=== PATIENT | male | born 1965 | race Caucasian/White ===

== ENCOUNTER 2018-03-19 10:30 | Inpatient (IN) | payer SELFPAY ==
[2018-03-19 10:43] VITALS: BMI 26.3
--- NOTE | 2018-03-19 11:43 | HP ---
CIWA Score - CIWA Score Nausea/Vomitin Muscle Tremors: 3 Anxiety: 3 Agitation: 3 Paroxysmal Sweats: 1-Minimal Palms Moist Orientation: 0-Oriented Tacttile Disturbances: 1-Very Mild Itch/Numbness Auditory Disturbances: 1-Very Mild Visual Disturbances: 1-Very Mild Sensitivity Headache: 2-Mild CIWA-Ar Total Score: 18 Admission ROS BHS - HPI Chief Complaint: i need help to stop drinking alcohol Allergies/Adverse Reactions: Allergies Allergy/AdvReac Type Severity Reaction Status Date / Time No Known Allergies Allergy Verified 03/19/18 11:30 History of Present Illness: this 53 years old male with alcohol dependence,seeking detox Exam Limitations: No Limitations - Ebola screening Have you traveled outside of the country in the last 21 days: No Have you had contact with anyone from an Ebola affected area: No Have you been sick,other than usual withdrawal symptoms: No Do you have a fever: No - Review of Systems Constitutional: Loss of Appetite, Malaise, Night Sweats, Changes in sleep, Weakness EENT: reports: Nose Congestion Respiratory: reports: No Symptoms reported Cardiac: reports: Palpitations GI: reports: Diarrhea, Nausea, Abdominal cramping : reports: No Symptoms Reported Musculoskeletal: reports: Back Pain, Muscle Pain Integumentary: reports: Dryness Neuro: reports: Headache, Tremors Endocrine: reports: No Symptoms Reported Hematology: reports: No Symptoms Reported Psychiatric: reports: No Sypmtoms Reported Patient History - Patient Medical History Hx Anemia: No Hx Asthma: No Hx Chronic Obstructive Pulmonary Disease (COPD): No Hx Cancer: No Hx Cardiac Disorders: No Hx Congestive Heart Failure: No Hx Hypertension: Yes (on med) Hx Hypercholesterolemia: No Hx Pacemaker: No HX Cerebrovascular Accident: No Hx Seizures: No Hx Dementia: No Hx Diabetes: No Hx Gastrointestinal Disorders: No Hx Liver Disease: No Hx Genitourinary Disorders: No Hx Sexually Transmitted Disorders: No Hx Renal Disease (ESRD): No Hx Thyroid Disease: No Hx Human Immunodeficiency Virus (HIV): No (last 03/13) Hx Hepatitis C: No Hx Depression: No Hx Suicide Attempt: No Hx Bipolar Disorder: No Hx Schizophrenia: No Other Medical History: no suicidal,n homicidal - Patient Surgical History Past Surgical History: No - PPD History Previous Implant?: Yes Documented Results: Negative w/o proof Implanted On Prior [facility] Admission?: No PPD to be Administered?: Yes - Smoking Cessation Smoking history: Never smoked - Substance & Tx. History Hx Alcohol Use: Yes Hx Substance Use: No Substance Use Type: Alcohol Hx Substance Use Treatment: No - Substances Abused Alcohol-vodka Route: Oral Frequency: Daily Amount used: 6 pts. Age of first use: 30 Date of Last Use: 03/18/18 Family Disease History - Family Disease History Family History: Denies Admission Physical Exam [facility] - Vital Signs Vital Signs: Vital Signs - 24 hr 03/19/18 10:41 Temperature 98.2 F Pulse Rate 102 H Respiratory 18 Rate Blood Pressure 158/106 - Physical General Appearance: Yes: Moderate Distress, Tremorous, Irritable, Sweating, Anxious HEENTM: Yes: Normal ENT Inspection, BRANDY, Pharynx Normal Respiratory: Yes: Lungs Clear, Normal Breath Sounds, No Respiratory Distress Neck: Yes: Within Normal Limits, Supple, Trachea in good position Breast: Yes: Within Normal Limits Cardiology: Yes: Tachycardia Abdominal: Yes: Within Normal Limits, Normal Bowel Sounds, Flat, Soft Genitourinary: Yes: Within Normal Limits Back: Yes: Muscle Spasm Musculoskeletal: Yes: Back pain, Muscle Pain Extremities: Yes: Normal Capillary Refill, Tremors Neurological: Yes: veneer drier II-XII NML intact, Fully Oriented, Alert, Motor Strength 5/5 Integumentary: Yes: Dry Lymphatic: Yes: Within Normal Limits - Diagnostic (1) Alcohol dependence with uncomplicated withdrawal Current Visit: Yes Status: Acute (2) Essential hypertension Current Visit: Yes Status: Acute Cleared for Admission [facility] - Detox or Rehab [facility] Level of Care: Medically Managed Detox Regimen/Protocol: Librium [facility] Breath Alcohol Content Breath Alcohol Content: 0 Urine Drug Screen - Results Drug Screen Negative: Yes
[2018-03-19] MEDS ORDERED: MAG HYDROX/AL HYDROX/SIMETH 30 ML UNIT-DOSE CUP PO PRN (11:50)
[2018-03-19] MEDS ORDERED: MAGNESIUM CITRATE 300 ML BOTTLE PO PRN (11:50)
[2018-03-19] MEDS ORDERED: guaiFENesin/D-METHORPHAN HB 10 ML UNIT-DOSE CUPS PO PRN (11:50)
[2018-03-19] MEDS ORDERED: MENTHOL/PHENOL 1 EACH UD MM PRN (11:50)
[2018-03-19] MEDS ORDERED: ACETAMINOPHEN 325 MG TABLET (FP) PO PRN (11:50)
[2018-03-19] MEDS ORDERED: LOPERAMIDE HCL 2 MG CAPSULE PO PRN (11:50)
[2018-03-19] MEDS ORDERED: chlordiazePOXIDE HCL 25 MG CAPSULE PO PRN (11:50)
[2018-03-19] MEDS ORDERED: P-EPHED 60MG/TRIPROLIDI 2.5MG TABLET PO PRN (11:50)
[2018-03-19] MEDS ORDERED: hydrOXYzine PAMOATE 50 MG CAPSULE (FP) PO PRN (11:50)
[2018-03-19] MEDS ORDERED: MAGNESIUM HYDROX 2400MG/30ML ORAL SUSPENSION 30 ML CUP PO PRN (11:50)
[2018-03-19] MEDS ORDERED: IBUPROFEN 400 MG TABLET (FP) PO PRN (11:50)
[2018-03-19] MEDS: chlordiazePOXIDE HCL 25 MG CAPSULE PO SCH ×2 (17:54→22:36)
[2018-03-19 18:04] LABS: URINE APPEARANCE CLEAR; URINE BILIRUBIN NEGATIVE (<2.0 mg/dL); URINE COLOR LTYELLOW; URINE GLUCOSE (UA) NEGATIVE (NEGATIVE); URINE KETONE NEGATIVE (NEGATIVE); URINE LEUK ESTERASE NEGATIVE (NEGATIVE); URINE NITRITE NEGATIVE (NEGATIVE); URINE PROTEIN NEGATIVE (NEGATIVE); URINE UROBILINOGEN NEGATIVE mg/dL (0.2-1.0)
--- NOTE | 2018-03-19 18:09 | EKG ---
Test Reason : Blood Pressure : / mmHG Vent. Rate : 098 BPM Atrial Rate : 098 BPM P-R Int : 154 ms QRS Dur : 088 ms QT Int : 372 ms P-R-T Axes : 054 018 021 degrees QTc Int : 474 ms NORMAL SINUS RHYTHM POSSIBLE LEFT ATRIAL ENLARGEMENT LEFT VENTRICULAR HYPERTROPHY ABNORMAL ECG NO PREVIOUS ECGS AVAILABLE Confirmed by SHIRA KUMAR, SANYA ([id number]) on 03/19/2018 6:09:28 PM Referred By: Confirmed By:SANYA SILVA MD
[2018-03-19] MEDS: THIAMINE HCL 100 MG TABLET (FP) PO SCH (22:36)
[2018-03-20] MEDS: chlordiazePOXIDE HCL 25 MG CAPSULE PO SCH ×4 (05:10→22:25)
[2018-03-20 10:40] LABS: HEMATOCRIT 51.7 % (35.4-49); HEMOGLOBIN 17.3 GM/dL (11.7-16.9); MCH 32.1 pg (25.7-33.7); MCHC 33.4 g/dl (32.0-35.9); MEAN CELL VOLUME 95.8 fl (80-96); MEAN PLT VOLUME 8.2 fl (7.5-11.1); PLATELET COUNT 226 K/MM3 (134-434); WHITE BLOOD COUNT 10.3 K/mm3 (4.0-10.0)
[2018-03-20] MEDS: PRENATAL VITAMINS W/ FOLIC ACID TABLET (FP) PO SCH (10:43)
[2018-03-20] MEDS: amLODIPine BESYLATE 5 MG TABLET (FP) PO SCH (10:43)
[2018-03-20 11:26] LABS: ALBUMIN 4.2 g/dl (3.4-5.0); ALK PHOS 81 U/L (45-117); ANION GAP 11 MMOL/L (8-16); BILIRUBIN,TOTAL 0.6 mg/dL (0.2-1); BLOOD UREA NITROGEN 13 mg/dL (7-18); CALCIUM 9.9 mg/dL (8.5-10.1); CHLORIDE 104 mmol/L (98-107); CO2 24 mmol/L (21-32); CREATININE 0.7 mg/dL (0.55-1.3); GLUCOSE,RANDOM 93 mg/dL (74-106); POTASSIUM 5.2 mmol/L (3.5-5.1); SGOT/AST 22 U/L (15-37); SGPT/ALT 32 U/L (13-61); SODIUM 138 mmol/L (136-145); TOT PROT 8.2 g/dl (6.4-8.2)
--- NOTE | 2018-03-20 15:49 | PN ---
S CIWA - CIWA Score Nausea/Vomitin-Mild Nausea/No Vomiting Muscle Tremors: 4-Moderate,w/Arms Extend Anxiety: 3 Agitation: 4-Moderately Restless Paroxysmal Sweats: 1-Minimal Palms Moist Orientation: 0-Oriented Tacttile Disturbances: 0-None Auditory Disturbances: 0-None Visual Disturbances: 0-None Headache: 1-Very Mild CIWA-Ar Total Score: 14 S Progress Note (SOAP) Subjective: sweat tremor gi distress restlessness anxiety Objective: 03/20/18 15:52 Vital Signs Temperature 97.5 F L 03/20/18 13:14 Pulse Rate 94 H 03/20/18 13:14 Respiratory Rate 18 03/20/18 13:14 Blood Pressure 123/90 03/20/18 13:14 O2 Sat by Pulse Oximetry (%) Laboratory Last Values WBC 10.3 K/mm3 (4.0-10.0) H 03/20/18 06:00 RBC 5.40 M/mm3 (4.00-5.60) 03/20/18 06:00 Hgb 17.3 GM/dL (11.7-16.9) H 03/20/18 06:00 Hct 51.7 % (35.4-49) H 03/20/18 06:00 MCV 95.8 fl (80-96) 03/20/18 06:00 MCH 32.1 pg (25.7-33.7) 03/20/18 06:00 MCHC 33.4 g/dl (32.0-35.9) 03/20/18 06:00 RDW 13.0 % (11.9-15.9) 03/20/18 06:00 Plt Count 226 K/MM3 (134-434) 03/20/18 06:00 MPV 8.2 fl (7.5-11.1) 03/20/18 06:00 Sodium 138 mmol/L (136-145) 03/20/18 06:00 Potassium 5.2 mmol/L (3.5-5.1) H 03/20/18 06:00 Chloride 104 mmol/L (98-107) 03/20/18 06:00 Carbon Dioxide 24 mmol/L (21-32) 03/20/18 06:00 Anion Gap 11 MMOL/L (8-16) 03/20/18 06:00 BUN 13 mg/dL (7-18) 03/20/18 06:00 Creatinine 0.7 mg/dL (0.55-1.3) 03/20/18 06:00 Creat Clearance w eGFR > 60 (>60) 03/20/18 06:00 Random Glucose 93 mg/dL (74-106) 03/20/18 06:00 Calcium 9.9 mg/dL (8.5-10.1) 03/20/18 06:00 Total Bilirubin 0.6 mg/dL (0.2-1) 03/20/18 06:00 AST 22 U/L (15-37) 03/20/18 06:00 ALT 32 U/L (13-61) 03/20/18 06:00 Alkaline Phosphatase 81 U/L (45-117) 03/20/18 06:00 Total Protein 8.2 g/dl (6.4-8.2) 03/20/18 06:00 Albumin 4.2 g/dl (3.4-5.0) 03/20/18 06:00 Urine Color Ltyellow 03/19/18 12:08 Urine Appearance Clear 03/19/18 12:08 Urine pH 5.0 (5.0-8.0) 03/19/18 12:08 Ur Specific [place] 1.016 (1.001-1.035) 03/19/18 12:08 Urine Protein Negative (NEGATIVE) 03/19/18 12:08 Urine Glucose (UA) Negative (NEGATIVE) 03/19/18 12:08 Urine Ketones Negative (NEGATIVE) 03/19/18 12:08 Urine Blood Negative (NEGATIVE) 03/19/18 12:08 Urine Nitrite Negative (NEGATIVE) 03/19/18 12:08 Urine Bilirubin Negative (<2.0 mg/dL) 03/19/18 12:08 Urine Urobilinogen Negative mg/dL (0.2-1.0) 03/19/18 12:08 Ur Leukocyte Esterase Negative (NEGATIVE) 03/19/18 12:08 RPR Titer Nonreactive (NONREACTIVE) 03/20/18 06:00 lab noted 03/20/18 15:55 K+ elevation Assessment: 03/20/18 15:55 withdrawal sx K+ elevation Plan: continue detox repeat K+
[2018-03-20] MEDS: THIAMINE HCL 100 MG TABLET (FP) PO SCH (22:25)
[2018-03-20] MEDS: MELATONIN 5 MG TABLETS PO PRN (22:27)
[2018-03-21] MEDS: chlordiazePOXIDE HCL 25 MG CAPSULE PO SCH ×2 (07:16→10:16)
[2018-03-21] MEDS: amLODIPine BESYLATE 5 MG TABLET (FP) PO SCH (10:16)
[2018-03-21] MEDS: PRENATAL VITAMINS W/ FOLIC ACID TABLET (FP) PO SCH (10:16)
--- NOTE | 2018-03-21 15:48 | PN ---
S CIWA - CIWA Score Nausea/Vomitin-No Nausea/No Vomiting Muscle Tremors: 3 Anxiety: 2 Agitation: 3 Paroxysmal Sweats: 1-Minimal Palms Moist Orientation: 0-Oriented Tacttile Disturbances: 1-Very Mild Itch/Numbness Auditory Disturbances: 0-None Visual Disturbances: 0-None Headache: 1-Very Mild CIWA-Ar Total Score: 11 S Progress Note (SOAP) Subjective: sweat tremor restlessness Objective: 03/21/18 15:47 Vital Signs Temperature 97.9 F 03/21/18 13:18 Pulse Rate 95 H 03/21/18 13:18 Respiratory Rate 18 03/21/18 13:18 Blood Pressure 135/82 03/21/18 13:18 O2 Sat by Pulse Oximetry (%) Laboratory Last Values WBC 10.3 K/mm3 (4.0-10.0) H 03/20/18 06:00 RBC 5.40 M/mm3 (4.00-5.60) 03/20/18 06:00 Hgb 17.3 GM/dL (11.7-16.9) H 03/20/18 06:00 Hct 51.7 % (35.4-49) H 03/20/18 06:00 MCV 95.8 fl (80-96) 03/20/18 06:00 MCH 32.1 pg (25.7-33.7) 03/20/18 06:00 MCHC 33.4 g/dl (32.0-35.9) 03/20/18 06:00 RDW 13.0 % (11.9-15.9) 03/20/18 06:00 Plt Count 226 K/MM3 (134-434) 03/20/18 06:00 MPV 8.2 fl (7.5-11.1) 03/20/18 06:00 Sodium 138 mmol/L (136-145) 03/20/18 06:00 Potassium 3.9 mmol/L (3.5-5.1) 03/21/18 08:53 Chloride 104 mmol/L (98-107) 03/20/18 06:00 Carbon Dioxide 24 mmol/L (21-32) 03/20/18 06:00 Anion Gap 11 MMOL/L (8-16) 03/20/18 06:00 BUN 13 mg/dL (7-18) 03/20/18 06:00 Creatinine 0.7 mg/dL (0.55-1.3) 03/20/18 06:00 Creat Clearance w eGFR > 60 (>60) 03/20/18 06:00 Random Glucose 93 mg/dL (74-106) 03/20/18 06:00 Calcium 9.9 mg/dL (8.5-10.1) 03/20/18 06:00 Total Bilirubin 0.6 mg/dL (0.2-1) 03/20/18 06:00 AST 22 U/L (15-37) 03/20/18 06:00 ALT 32 U/L (13-61) 03/20/18 06:00 Alkaline Phosphatase 81 U/L (45-117) 03/20/18 06:00 Total Protein 8.2 g/dl (6.4-8.2) 03/20/18 06:00 Albumin 4.2 g/dl (3.4-5.0) 03/20/18 06:00 Urine Color Ltyellow 03/19/18 12:08 Urine Appearance Clear 03/19/18 12:08 Urine pH 5.0 (5.0-8.0) 03/19/18 12:08 Ur Specific [place] 1.016 (1.001-1.035) 03/19/18 12:08 Urine Protein Negative (NEGATIVE) 03/19/18 12:08 Urine Glucose (UA) Negative (NEGATIVE) 03/19/18 12:08 Urine Ketones Negative (NEGATIVE) 03/19/18 12:08 Urine Blood Negative (NEGATIVE) 03/19/18 12:08 Urine Nitrite Negative (NEGATIVE) 03/19/18 12:08 Urine Bilirubin Negative (<2.0 mg/dL) 03/19/18 12:08 Urine Urobilinogen Negative mg/dL (0.2-1.0) 03/19/18 12:08 Ur Leukocyte Esterase Negative (NEGATIVE) 03/19/18 12:08 RPR Titer Nonreactive (NONREACTIVE) 03/20/18 06:00 lab noted Assessment: 03/21/18 15:47 withdrawal sx Plan: continue detox
[2018-03-21] MEDS: chlordiazePOXIDE 5 MG CAPSULE PO SCH ×2 (18:10→22:19)
[2018-03-21] MEDS: THIAMINE HCL 100 MG TABLET (FP) PO SCH (22:19)
[2018-03-21] MEDS: MELATONIN 5 MG TABLETS PO PRN (22:20)
[2018-03-22] MEDS: chlordiazePOXIDE 5 MG CAPSULE PO SCH ×2 (06:00→10:57)
[2018-03-22] MEDS: amLODIPine BESYLATE 5 MG TABLET (FP) PO SCH (10:57)
[2018-03-22] MEDS: PRENATAL VITAMINS W/ FOLIC ACID TABLET (FP) PO SCH (10:57)
--- NOTE | 2018-03-22 11:38 | PN ---
[facility] Progress Note Note: Vital Signs Temperature 97.2 F L 03/22/18 09:13 Pulse Rate 92 H 03/22/18 09:13 Respiratory Rate 18 03/22/18 09:13 Blood Pressure 149/86 03/22/18 09:13 O2 Sat by Pulse Oximetry (%) Laboratory Last Values WBC 10.3 K/mm3 (4.0-10.0) H 03/20/18 06:00 RBC 5.40 M/mm3 (4.00-5.60) 03/20/18 06:00 Hgb 17.3 GM/dL (11.7-16.9) H 03/20/18 06:00 Hct 51.7 % (35.4-49) H 03/20/18 06:00 MCV 95.8 fl (80-96) 03/20/18 06:00 MCH 32.1 pg (25.7-33.7) 03/20/18 06:00 MCHC 33.4 g/dl (32.0-35.9) 03/20/18 06:00 RDW 13.0 % (11.9-15.9) 03/20/18 06:00 Plt Count 226 K/MM3 (134-434) 03/20/18 06:00 MPV 8.2 fl (7.5-11.1) 03/20/18 06:00 Sodium 138 mmol/L (136-145) 03/20/18 06:00 Potassium 3.9 mmol/L (3.5-5.1) 03/21/18 08:53 Chloride 104 mmol/L (98-107) 03/20/18 06:00 Carbon Dioxide 24 mmol/L (21-32) 03/20/18 06:00 Anion Gap 11 MMOL/L (8-16) 03/20/18 06:00 BUN 13 mg/dL (7-18) 03/20/18 06:00 Creatinine 0.7 mg/dL (0.55-1.3) 03/20/18 06:00 Creat Clearance w eGFR > 60 (>60) 03/20/18 06:00 Random Glucose 93 mg/dL (74-106) 03/20/18 06:00 Calcium 9.9 mg/dL (8.5-10.1) 03/20/18 06:00 Total Bilirubin 0.6 mg/dL (0.2-1) 03/20/18 06:00 AST 22 U/L (15-37) 03/20/18 06:00 ALT 32 U/L (13-61) 03/20/18 06:00 Alkaline Phosphatase 81 U/L (45-117) 03/20/18 06:00 Total Protein 8.2 g/dl (6.4-8.2) 03/20/18 06:00 Albumin 4.2 g/dl (3.4-5.0) 03/20/18 06:00 Urine Color Ltyellow 03/19/18 12:08 Urine Appearance Clear 03/19/18 12:08 Urine pH 5.0 (5.0-8.0) 03/19/18 12:08 Ur Specific [place] 1.016 (1.001-1.035) 03/19/18 12:08 Urine Protein Negative (NEGATIVE) 03/19/18 12:08 Urine Glucose (UA) Negative (NEGATIVE) 03/19/18 12:08 Urine Ketones Negative (NEGATIVE) 03/19/18 12:08 Urine Blood Negative (NEGATIVE) 03/19/18 12:08 Urine Nitrite Negative (NEGATIVE) 03/19/18 12:08 Urine Bilirubin Negative (<2.0 mg/dL) 03/19/18 12:08 Urine Urobilinogen Negative mg/dL (0.2-1.0) 03/19/18 12:08 Ur Leukocyte Esterase Negative (NEGATIVE) 03/19/18 12:08 RPR Titer Nonreactive (NONREACTIVE) 03/20/18 06:00 c/o anxious Aox3 no adventitious breath sounds full ROM ambulating in the unit continue detox continue detox d/c in AM
[2018-03-22] MEDS: chlordiazePOXIDE HCL 10 MG CAPSULE PO SCH ×2 (17:07→22:20)
[2018-03-22] MEDS: THIAMINE HCL 100 MG TABLET (FP) PO SCH (22:20)
[2018-03-22] MEDS: MELATONIN 5 MG TABLETS PO PRN (22:20)
[2018-03-23 05:58] VITALS: BP 127/89; PULSE 82; TEMP 97.2
[2018-03-23] MEDS: chlordiazePOXIDE HCL 10 MG CAPSULE PO SCH (06:20)
--- NOTE | 2018-03-23 09:11 | DS ---
[facility] Detox Discharge Summary Admission Date: 03/19/18 Discharge Date: 03/23/18 - History Present History: Alcohol Dependence - Physical Exam Results Vital Signs: Vital Signs Temperature 97.2 F L 03/23/18 05:57 Pulse Rate 82 03/23/18 05:57 Respiratory Rate 16 03/23/18 05:57 Blood Pressure 127/89 03/23/18 05:57 O2 Sat by Pulse Oximetry (%) - Treatment Hospital Course: Detox Protocol Followed, Detoxed Safely, Responded well, Discharged Condition Good, Rehab Referral Accepted - Medication Discharge Medications: Ambulatory Orders Amlodipine Besylate [Norvasc -] 5 mg PO DAILY 03/19/18 Amlodipine Besylate [Norvasc -] 5 mg PO DAILY #30 tablet 03/22/18 - AMA Did Patient Leave Against Medical Advice: No
== END 2018-03-23 08:51 | disposition home or self-care (01) | DRG 775 ==
LOC: YASAS 10:30 → Y6N 11:51
PROC: HZ2ZZZZ Detoxification Services for Substance Abuse Treatment (ICD-10-PCS; principal; 2018-03-19)
DX: F10.230 Alcohol dependence with withdrawal, uncomplicated (principal); I10 Essential (primary) hypertension; E87.5 Hyperkalemia
CPT/HCPCS: 36415; 80053; 81003; 84132; 85027; 86593; 93005; 93010